=== PATIENT | male | born 2000 | race Caucasian/White ===

== ENCOUNTER 2024-08-23 23:34 | Emergency (ER) | payer OTHER ==
[~2024-08-23] VITALS: Ht 170.2 cm; Wt 106.1 kg
[2024-08-23 23:35] VITALS: TEMP 97.2
[2024-08-24] MEDS: NS 1,000 ML IV ONE (01:31)
[2024-08-24] MEDS: diphenhydrAMINE 50MG/ML VIAL IV ONE (01:32)
[2024-08-24] MEDS: dexAMETHasone 20MG/5ML VIAL IV ONE (01:32)
[2024-08-24] MEDS: METOCLOPRAMIDE INJ 10MG/2ML VIAL IV ONE (01:32)
[2024-08-24 01:33] LABS: BASO # 0.1 10^3/uL (0.0-0.2); BASO % 0.4 % (0.0-1.0); EOS # 0.3 10^3/uL (0.0-0.5); EOS % 2.1 % (0.0-3.0); HEMATOCRIT 44.5 % (42.0-52.0); HEMOGLOBIN 15.3 g/dl (13.5-17.5); LYMPH # 3.4 10^3/uL (1.5-5.0); LYMPH % 26.8 % (24.0-44.0); MEAN CORPUSCULAR HEMOGLOBIN 30.2 pg (27.0-33.0); MEAN CORPUSCULAR HGB CONC 34.4 g/dl (32.0-36.5); MEAN CORPUSCULAR VOLUME 87.9 fl (80.0-96.0); MONO # 1.2 10^3/uL (0.0-0.8); MONO % 9.2 % (2.0-8.0); NEUTROPHILS # 7.7 10^3/uL (1.5-8.5); NEUTROPHILS % 60.9 % (36.0-66.0); PLATELET COUNT, AUTOMATED 250 10^3/uL (150-450); RED BLOOD COUNT 5.06 10^6/uL (4.30-6.10); WHITE BLOOD COUNT 12.6 10^3/uL (4.0-10.0)
[2024-08-24 02:16] LABS: ALBUMIN 4.5 G/DL (3.2-5.2); ALKALINE PHOSPHATASE 63 U/L (46-116); ALT/SGPT 46 U/L (7.0-40); AST/SGOT 48 U/L (<34); BILIRUBIN,DIRECT < 0.1 MG/DL (<0.4); BILIRUBIN,TOTAL 0.4 MG/DL (0.3-1.2); BLOOD UREA NITROGEN 30 MG/DL (9-23); CALCIUM LEVEL 9.5 MG/DL (8.5-10.1); CARBON DIOXIDE LEVEL 25 MMOL/L (20-31); CHLORIDE LEVEL 109 MMOL/L (98-107); CREATININE FOR GFR 0.96 MG/DL (0.70-1.30); GLOMERULAR FILTRATION RATE > 60.0 (>60); GLUCOSE, FASTING 80 MG/DL (60-100); LIPASE 38 U/L (12-53); POTASSIUM SERUM 5.3 MMOL/L (3.5-5.1); SODIUM LEVEL 138 MMOL/L (136-145); TOTAL PROTEIN 7.6 G/DL (5.7-8.2)
[2024-08-24 02:21] VITALS: BP 154/98; O2SAT 98
== END 2024-08-24 02:59 | disposition home or self-care (01) ==
LOC: M ED 23:34
DX: R51.9 Headache, unspecified (principal); F10.10 Alcohol abuse, uncomplicated
CPT/HCPCS: 70450; 72125; 80048; 80076; 83690; 85025; 87486; 87581; 87633; 87798; 96374; 99284; J1100; J1200; J2765